=== PATIENT | male | born 1990 | race Caucasian/White ===

== ENCOUNTER 2017-10-24 20:28 | Emergency (ER) | payer OTHER ==
[2017-10-24 20:39] VITALS: BP 125/85
--- NOTE | 2017-10-24 21:51 | RAD ---
Indication: Left foot pain. 3 views of left foot demonstrates no fracture. No other bone or joint abnormality is identified. IMPRESSION: No fracture of the left foot.
--- NOTE | 2017-10-24 21:51 | RAD ---
Indication: Left ankle injury. 3 views of left ankle demonstrates no fracture. Ankle mortise is intact. No other bone or joint abnormalities identified. IMPRESSION: Unremarkable left ankle.
--- NOTE | 2017-10-24 21:53 | UC ---
Lower Extremity/Ankle HPI - HPI Summary HPI Summary: WORSENING LEFT FOOT PAIN FOR ONE WEEK. ( HAD LEFT ANKLE SPRAIN 3 WEEKS AGO.) PAIN WITH WEIGHT BEARING. WEARS STEEL TOED SHOES. NO KNOWN TRAUMA. - History of Current Complaint Hx Obtained From: Patient Onset/Duration: Gradual Onset, Lasting Weeks Severity Initially: Mild Severity Currently: Severe Aggravating Factor(s): Standing, Ambulation Alleviating Factor(s): Rest, Elevation Able to Bear Weight: Yes - WITH PAIN - Risk Factors Gout Risk Factors: Negative DVT Risk Factors: Negative Septic Arthritis Risk Factor: Negative <Federico Arnold - Last Filed: 10/24/17 21:48> <Belinda Egan - Last Filed: 10/24/17 21:58> - History of Current Complaint Chief Complaint: UCLowerExtremity Stated Complaint: FOOT PAIN Time Seen by Provider: 10/24/17 20:39 - Allergies/Home Medications Allergies/Adverse Reactions: Allergies Allergy/AdvReac Type Severity Reaction Status Date / Time No Known Allergies Allergy Verified 10/24/17 20:31 Home Medications: Home Medications Cyclobenzaprine TAB* [Flexeril 10 MG TAB*] 10 mg PO DAILY PRN 10/24/17 [History Confirmed 10/24/17] Hydroxyzine HCl 10 mg PO TID PRN 10/24/17 [History Confirmed 10/24/17] Omeprazole CAP* [Prilosec CAP* 20 MG] 20 mg PO DAILY 10/24/17 [History Confirmed 10/24/17] PMH/Surg Hx/FS Hx/Imm Hx Previously Healthy: Yes - Surgical History Surgical History: None - Family History Known Family History: Negative: Other - NO JOINT LAXITY - Social History Occupation: Employed Full-time Lives: With Family Alcohol Use: Rare Substance Use Type: None, Marijuana Smoking Status (MU): Smoker, Current Status Unknown Type: Smokeless Tobacco Household Exposure Type: Cigarettes <Federico Arnold - Last Filed: 10/24/17 21:48> Review of Systems Constitutional: Negative Skin: Negative Eyes: Negative ENT: Negative Respiratory: Negative Cardiovascular: Negative Gastrointestinal: Negative Genitourinary: Negative Motor: Negative Neurovascular: Negative Musculoskeletal: Arthralgia - LEFT FOOT, Myalgia - LEFT FOOT Neurological: Negative Psychological: Negative Is Patient Immunocompromised?: No All Other Systems Reviewed And Are Negative: Yes <Federico Arnold - Last Filed: 10/24/17 21:48> Physical Exam Triage Information Reviewed: Yes Appearance: Well-Appearing, No Pain Distress, Well-Nourished Vital Signs: Initial Vital Signs Temp 99.2 F 10/24/17 20:31 Pulse 85 10/24/17 20:31 Resp 18 10/24/17 20:31 BP 125/85 10/24/17 20:31 Pulse Ox 100 10/24/17 20:31 Vital Signs Reviewed: Yes Eye Exam: Normal ENT Exam: Normal ENT: Positive: Normal ENT inspection Dental Exam: Normal Neck exam: Normal Neck: Positive: Supple, Nontender, No Lymphadenopathy Respiratory Exam: Normal Respiratory: Positive: Chest non-tender, Lungs clear, Normal breath sounds, No respiratory distress, No accessory muscle use Cardiovascular Exam: Normal Cardiovascular: Positive: RRR, No Murmur, Pulses Normal Abdominal Exam: Normal Abdomen Description: Positive: Nontender, No Organomegaly Musculoskeletal: Positive: Strength Intact, ROM Intact, Other: - TENDERNESS TO DORSAL LATERAL FOOT WITH PALPATION Neurological Exam: Normal Psychological Exam: Normal Skin Exam: Normal <Federico Arnold - Last Filed: 10/24/17 21:48> Vital Signs: Initial Vital Signs Temp 99.2 F 10/24/17 20:31 Pulse 85 10/24/17 20:31 Resp 18 10/24/17 20:31 BP 125/85 10/24/17 20:31 Pulse Ox 100 10/24/17 20:31 <Belinda Egan - Last Filed: 10/24/17 21:58> Diagnostics - Radiology No standard instances Xray Interpretation: Positive (See Comments) - Interpreted by radiologist, reviewed by PARVEZ. Interpretation : NO IMPRESSION OF FRACTURE OR DISLOCATION Radiology Interpretation Completed By: ED Physician <Federico Arnold - Last Filed: 10/24/17 21:48> Lower Extremity Course/Dx - Course Course Of Treatment: CAM BOOT AND CRUTCHES, HAVE PATIENT FOLLOW UP WITH ORTHOPEDICS. - Differential Dx/Diagnosis Differential Diagnosis/HQI/PQRI: Fracture (Closed), Sprain, Strain, Other - EXTENSOR TENDONITIS OF THE FOOT Provider Diagnoses: LEFT FOOT SPRAIN - Physician Notifications Instructed by Provider To: Have Pt Call For Appt. <Federico Arnold - Last Filed: 10/24/17 21:48> Discharge <Federico Arnold - Last Filed: 10/24/17 21:48> <Belinda Egan - Last Filed: 10/24/17 21:58> - Discharge Plan Condition: Stable Disposition: HOME Patient Education Materials: Foot Sprain (ED), Tendinitis (ED) Forms: *Work Release Referrals: Jean Malone MD [Medical Doctor] - Luci Hernandez NP [Primary Care Provider] - Images Feet (Multiple View): 1 - PAIN HERE <Federico Arnold - Last Filed: 10/24/17 21:48> Attestation Statement User Type: Provider - I was available for consult. This patient was seen by the GHISLAINE. The patient was not presented to, seen by, or examined by me. -Gissell <Belinda Egan - Last Filed: 10/24/17 21:58>
== END 2017-10-24 21:51 | disposition home or self-care (01) ==
LOC: UCEAST 20:28
DX: S93.602A Unspecified sprain of left foot, initial encounter (principal); X58.XXXA Exposure to other specified factors, initial encounter; Y93.9 Activity, unspecified; Y92.9 Unspecified place or not applicable; F12.90 Cannabis use, unspecified, uncomplicated; Z72.0 Tobacco use
CPT/HCPCS: 99212; G0463

== ENCOUNTER 2018-11-24 09:35 | Emergency (ER) | payer OTHER ==
--- OUTSIDE RECORDS SUMMARY | 2018-11-24 10:11 | XMS REPORT | Continuity of Care Document ---
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 [address] PayID: [id number] [id number] Effective: 2012 Policy Number: Lifetime Benefit Paul Roy [id number] Solution Expires: 2013 Group Number: [id number] [address] [address] PayID: [id number] Ivory [id number] Effective: 2013 Policy Number: [place] Roy [id number] Medicaid PayID: [id number] [address] [place] [address] Advance Directives Description No Information Available Problems Description No Active Problems Family History Description No Information Available Social History Type Date Description Comments Sex Unknown Lives With The child lives with the father And His Fiance. Allergies, Adverse Reactions, Alerts Description No Known Drug Allergies Medications Medication Date Status Form Strength Qnty SIG Indications Ordering Provider Sildenafil 11/01 Active Tablets 100mg 10tab 1 by mouth N52.8 Shawnti Citrate s prior to Nory Cardona, intercourse ENTERTAINMENT PRODUCTION PROFESSIONAL-C if needed Ibuprofen 09/04 Active Tablets 600mg 60tab take one Shawnti /2016 s tablet by Nory Cardona, mouth 3 times ENTERTAINMENT PRODUCTION PROFESSIONAL-C daily with food as needed for pain Famotidine 06/21 Active Tablets 20mg 30tab 1 by mouth Luci s every day ABDELRAHMAN HernandezP-C Cyclobenzaprine 06/02 Active Tablets 5mg 60tab 1-2 by mouth Luci s three times a Mary, day for ENTERTAINMENT PRODUCTION PROFESSIONAL-C muscle spasm, may cause drowsiness Hydroxyzine HCL 06/02 Active Tablets 10mg 45tab 1 -3 tablet Luci s by mouth 4 Mary, times a day ENTERTAINMENT PRODUCTION PROFESSIONAL-C as needed for anxiety Tessalon Perles 07/26 Hx Capsules 100mg 30cap 1 to 2 J06.9 Marga s capsules up Shortle, - to 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 day as needed for cough Amoxicillin/Clav 04/20 Hx Tablets 875-125mg 20tab 1 tab by J01.90 Mark ulanat s mouth twice a [place] Potassium - MD sung 05/20 Azithromycin 12/05 Hx Tablets 250mg 6tabs take 2 J02.0 tablets today Mary, - then 1 tablet ENTERTAINMENT PRODUCTION PROFESSIONAL-C 04/20 daily for the next 4 days Clarithromycin 08/31 Hx Tablets 250mg 20tab 1 tablet po 462 s bid x 10 days Mary, - ENTERTAINMENT PRODUCTION PROFESSIONAL-C 04/20 Minocycline HCL 05/17 Hx Capsules 50mg 60cap 1 po bid for s one month Nory Cardona, - then 1 po ENTERTAINMENT PRODUCTION PROFESSIONAL-C 04/20 daily for acne To Whom It May 02/23 Hx Paul Cabalelro cleared to Michael, - 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 Benzonatate 09/07 Hx Capsules 100mg 30cap 1 or 2 tabs 465.9 s po tid prn Mary, - coughing ENTERTAINMENT PRODUCTION PROFESSIONAL-C 02/22 Wrist Splint 04/19 Hx Misc Cock Up 1spli wear on right 842.19 Right nt wrist full RStephanie Cardona, - time for 1-2 ENTERTAINMENT PRODUCTION PROFESSIONAL-C 02/22 weeks then needed Ibuprofen 04/19 Hx Tablets 600mg 60tab 1 tid prn 842.19 s pain, take Michael, - with food M.DStephanie 04/20 Guaifenesin ac 02/22 Hx Syrup 100-10mg/ 150ml 1 tsp po q4hr 842.19 5ML prn cough Nory Cardona, - ENTERTAINMENT PRODUCTION PROFESSIONAL-C 02/22 Doxycycline 12/06 Hx Capsules 100mg 14cap 1 tab po bid V69.2 Olivia Hyclate s for 7 days Miguel, - 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 10/02 Strattera 05/12 Hx Capsules 40mg 30cap Sirena Alatorre M.D. 10/02 Concerta 02/16 Hx Tablets 36mg 30tab 1 po qd Sirena Alatorre M.D. 05/12 Benzamycin 10/03 Hx Gel 46gm apply bid Sirena Rodriguez M.D. 01/21 Benzaclin Gel 10/01 Hx 50Gra use bid Sirena Lowry M.D. 10/03 Eryderm 04/28 Hx 30gm use qd Luci SobSirena gallegos.DStephanie 10/01 Concerta 08/12 Hx Tablets 18mg 53tab one q am for s 1 week then K.W. - two po q am Keyur, 02/16 M.DStephanie /2003 Loprox 1% Cream 08/07 Hx Cream 1% 30gm apply bid for 4 weeks for P. - athletes foot Blegen, 10/01 M.DStephanie /2002 Differin 08/07 Hx Gel 0.1% 45gm apply qhs P. - Blegen, 10/01 MStephanieDStephanie /2002 Concerta 05/02 Hx 36mg 30uni one po qd donte Pack M.D. 10/01 Omeprazole Hx Capsules 20mg 1 by mouth Unknown /0000 DR every day - 06/21 Medications Administered in Office Medication Date Status Form Strength Qnty SIG Indications Ordering Provider TB,Intradermal Administered Injection Lab and (PPD, [place]) 013 Office Services TB,Intradermal Administered Injection Federico Rodriguez, (PPD, [place]) 991 M.D. Immunizations CPT Code Status Date Vaccine Lot # [id number] Given 09/17/2016 Influenza Virus Vaccine, Quadrivalent, 3 Yr > Quad, Preserv Free 20191 Given 07/04/1995 Opv (Poliovirus,Oral) 21864 Given 07/04/1995 MMR (Measles,Mumps,Rubella) 38152 Given 07/04/1995 DTaP (Daptacel) 67675 Given 07/08/1994 Hep B Vaccine, Ped/Adol Dose 3 Dose (Engerix or Recombivax) 52453 Given 07/08/1993 Hep B Vaccine, Ped/Adol Dose 3 Dose (Engerix or Recombivax) 23136 Given 06/03/1993 Hep B Vaccine, Ped/Adol Dose 3 Dose (Engerix or Recombivax) 22982 Given 01/27/1992 DPT 85253 Given 01/27/1992 Opv (Poliovirus,Oral) 35956 Given 04/16/1991 MMR (Measles,Mumps,Rubella) 95590 Given 04/16/1991 Hib (Hemophilus Influenza B) (Acthib) 61210 Given 01/04/1991 Hib (Hemophilus Influenza B) (Acthib) 05712 Given 06/19/1990 DPT 43940 Given 04/04/1990 Opv (Poliovirus,Oral) 54581 Given 04/04/1990 DPT 27161 Given 01/29/1990 Opv (Poliovirus,Oral) 26193 Given 01/29/1990 DPT Vital Signs Date Vital Result Comment 11/01/2018 4:18pm Weight 141.00 lb w/ maguire toe boots Weight 63.958 kg BP Systolic 110 mmHg BP Diastolic 74 mmHg Heart Rate 88 /min Body Temperature 98.5 F Respiratory Rate 16 /min 07/26/2018 3:24pm Weight 136.00 lb Weight 61.690 kg BP Systolic 108 mmHg BP Diastolic 70 mmHg Heart Rate 74 /min Body Temperature 99.2 F Respiratory Rate 16 /min 06/21/2017 10:28am Weight 155.00 lb Weight 70.308 kg BP Systolic 110 mmHg BP Diastolic 78 mmHg Heart Rate 72 /min Body Temperature 98.7 F Respiratory Rate 14 /min 06/02/2017 9:17am Weight 150.00 lb Weight 68.040 kg BP Systolic 110 mmHg BP Diastolic 80 mmHg Heart Rate 72 /min Body Temperature 98.6 F Respiratory Rate 16 /min 04/20/2017 8:43am Weight 147.00 lb Weight 66.679 kg BP Systolic 100 mmHg BP Diastolic 70 mmHg Heart Rate 74 /min Body Temperature 97.7 F Respiratory Rate 14 /min O2 % BldC Oximetry 98 % 12/05/2016 10:07am Weight 140.00 lb Weight 63.504 kg BP Systolic 110 mmHg BP Diastolic 66 mmHg Heart Rate 99 /min Body Temperature 99.6 F Respiratory Rate 18 /min Height 63.5 inches 5'3.50" BMI (Body Mass Index) 24.4 kg/m2 O2 % BldC Oximetry 99 % 08/31/2012 10:55am Weight 111.00 lb Weight 50.350 kg BP Systolic 124 mmHg BP Diastolic 64 mmHg Heart Rate 110 /min Body Temperature 101.4 F Height 63.5 inches 5'3.50" BMI (Body Mass Index) 19.4 kg/m2 O2 % BldC Oximetry 98 % 05/21/2012 4:23pm Weight 122.00 lb Weight 55.339 kg BP Systolic 124 mmHg BP Diastolic 90 mmHg Heart Rate 68 /min 05/19/2012 10:06am Weight 119.00 lb Weight 53.978 kg BP Systolic 112 mmHg BP Diastolic 56 mmHg Body Temperature 97.3 F 05/17/2012 4:25pm Weight 126.00 lb Weight 57.154 kg BP Systolic 100 mmHg BP Diastolic 68 mmHg Heart Rate 76 /min Body Temperature 99.1 F 02/28/2012 10:56am Weight 116.00 lb Weight 52.618 kg BP Systolic 94 mmHg BP Diastolic 62 mmHg Heart Rate 88 /min Body Temperature 97.8 F 02/24/2012 11:23am Weight 123.00 lb with boots on Weight 55.793 kg BP Systolic 100 mmHg BP Diastolic 54 mmHg Heart Rate 72 /min 09/07/2011 3:06pm Weight 107.00 lb Weight 48.535 kg BP Systolic 100 mmHg BP Diastolic 68 mmHg Heart Rate 90 /min Body Temperature 99.4 F O2 % BldC Oximetry 97 % 04/19/2011 11:46am Weight 116.00 lb Weight 52.618 kg BP Systolic 102 mmHg BP Diastolic 68 mmHg Heart Rate 76 /min Height 64 inches 5'4" BMI (Body Mass Index) 19.9 kg/m2 02/22/2011 3:15pm Weight 116.50 lb Weight 52.844 kg BP Systolic 128 mmHg BP Diastolic 76 mmHg Body Temperature 99.1 F 12/06/2010 9:19am Weight 118.00 lb Weight 53.525 kg BP Systolic 112 mmHg BP Diastolic 72 mmHg Heart Rate 76 /min 09/11/2008 2:52pm Weight 118.00 lb Weight 53.525 kg BP Systolic 130 mmHg BP Diastolic 70 mmHg Heart Rate 83 /min Body Temperature 97.0 F oral Weight Percentile 6th O2 % BldC Oximetry 98 % room air 10/08/2007 9:40am Weight 119.00 lb Weight 53.978 kg BP Systolic 110 mmHg BP Diastolic 62 mmHg Heart Rate 67 /min Body Temperature 97.1 F Weight Percentile 9th 10/18/2005 2:52pm Weight 118.00 lb Weight 53.525 kg BP Systolic 110 mmHg BP Diastolic 68 mmHg Heart Rate 62 /min Weight Percentile 24th 03/15/2005 4:13pm Weight 123.00 lb Weight 55.793 kg Weight Percentile 43rd 09/30/2004 4:43pm Weight 122.00 lb Weight 55.339 kg BP Systolic 106 mmHg BP Diastolic 65 mmHg Heart Rate 76 /min Weight Percentile 50th 05/12/2004 3:57pm Weight 115.00 lb Weight 52.164 kg BP Systolic 116 mmHg BP Diastolic 73 mmHg Heart Rate 76 /min Weight Percentile 45th 02/17/2004 12:30pm Weight 117.00 lb Weight 53.071 kg BP Systolic 130 mmHg BP Diastolic 60 mmHg Heart Rate 72 /min Height 61 inches Height Percentile 10 % Weight Percentile 54th BMI (Body Mass Index) 22.1 kg/m2 01/14/2004 5:04pm Weight 117.00 lb Weight 53.071 kg Body Temperature 99.9 F Weight Percentile 56th 12/22/2003 5:05pm Weight 113.00 lb Weight 51.257 kg Body Temperature 100.8 F Weight Percentile 50th 04/28/2003 11:17am Weight 107.00 lb Weight 48.535 kg Body Temperature 99.3 F Weight Percentile 53rd 12/03/2002 2:16pm Weight 102.00 lb Weight 46.300 kg BP Systolic 100 mmHg BP Diastolic 60 mmHg Heart Rate 60 /min Weight Percentile 53rd 08/07/2002 6:04pm Weight 101.00 lb Weight 45.800 kg BP Systolic 90 mmHg BP Diastolic 60 mmHg Height 58.5 inches Height Percentile 26 % Weight Percentile 58th BMI (Body Mass Index) 20.7 kg/m2 08/07/2002 5:59pm Weight 101.00 lb Weight 45.800 kg Height 148 inches Height Percentile 95 % Weight Percentile 58th BMI (Body Mass Index) 3.2 kg/m2 03/20/2002 4:15pm Weight 95.00 lb Body Temperature 98.6 F Weight Percentile 61st Results Test Date Facility Test Result H/L Range Note Laboratory test 12/05/2016 In House Lab Strep Screen POS Neg finding (607)- - Flu Test A, B, Or A 12/05/2016 In House Lab Influenza A Antigen NEG & B,Binaxn (607)- - Influenza B Antigen NEG Urine Drug 01/20/2013 [facility] Amphetamine Ur None Detected None Detect SCR ED & [phone] Screen Pain Clinic Barbiturates Urine Screen None Detected None Detect Benzodiazepine Urine Screen None Detected None Detect Urine Cannabinoids Screen None Detected None Detect Urine Cocaine Screen None Detected None Detect Urine Opiates Screen None Detected None Detect Urine Phencyclidine Screen None Detected None Detect 1 CBC Auto Diff 01/20/2013 [facility] White Blood 5.8 10^3/uL 4.8-10.8 [phone] Count Red Blood Count 5.16 10^6/uL 4.0-5.4 Hemoglobin 15.6 g/dL 14.0-18.0 Hematocrit 45 % 42-52 Mean Corpuscular Volume 87 fL 80-94 Mean Corpuscular Hemoglobin 30 pg 27-31 Mean Corpuscular HGB Conc 35 g/dL 31-36 Red Cell Distribution Width 13 % 10.5-15 Platelet Count 208 10^3/uL 150-450 Mean Platelet Volume 8 um3 7.4-10.4 Abs Neutrophils 3.4 10^3/uL 1.5-7.7 Abs Lymphocytes 1.6 10^3/uL 1.0-4.8 Abs Monocytes 0.6 10^3/uL 0-0.8 Abs Eosinophils 0.1 10^3/uL 0-0.6 Abs Basophils 0.1 10^3/uL 0-0.2 Abs Nucleated RBC 0 10^3/uL Granulocyte % 59.2 % 38-83 Lymphocyte % 28.2 % 25-47 Monocyte % 10.4 % High 1-9 Eosinophil % 1.3 % 0-6 Basophil % 0.9 % 0-2 Nucleated Red Blood Cells % 0 Comp Metabolic Panel 01/20/2013 [facility] Sodium 139 mmol/L 133-145 [phone] Potassium 4.1 mmol/L 3.5-5.0 Chloride 105 mmol/L 101-111 Co2 Carbon Dioxide 26.0 mmol/L 22-32 Anion Gap 8.0 mmol/L 2-11 Glucose 89 mg/dL 70-100 Blood Urea Nitrogen 9 mg/dL 6-24 Creatinine 0.80 mg/dL 0.50-1.40 BUN/Creatinine Ratio 11.3 8-20 Calcium 9.2 mg/dL 8.1-9.9 Total Protein 7.8 g/dL 6.2-8.1 Albumin 4.4 g/dL 3.6-5.4 Globulin 3.4 g/dL 2-4 Albumin/Globulin Ratio 1.3 1-3 Total Bilirubin 1.1 mg/dL 0.4-1.5 Alkaline Phosphatase 73 U/L 30-110 Alt 30 U/L 14-54 Ast 16 U/L 12-42 Egfr Non- 119.8 >60 Egfr 154.1 >60 2 Laboratory test 01/20/2013 [facility] Acetaminophen < 10 g/mL Low 10-30 3 finding [phone] Alcohol < 10 mg/dL Less Than 10 4 Salicylate < 4.0 mg/L Less Than 30 5 TSH (Thyroid Stimulating Horm) 1.13 miu/mL 0.34-5.60 Urinalysis 01/20/2013 [facility] Urine Color Yellow [phone] Urine Appearance Clear Urine Specific Ewing 1.015 1.010-1.030 Urine Esterase Negative Negative Urine Nitrate Negative Negative Urine Urobilinogen Negative E.U./dL Negative Urine Protein Negative mg/dL Negative Urine pH 7.0 5-9 Urine Blood Negative Negative Urine Ketones Negative mg/dL Negative Urine Bilirubin Negative Negative Urine Glucose Negative mg/dL Negative Laboratory test 08/31/2012 In House Lab Strep Screen NEG Neg finding (607)- - CBC Auto Diff 06/18/2012 [facility] White Blood 13.9 CUMM High 4.8-10.8 [phone] Count Red Cell Count 5.54 CUMM 4.6-6.2 Hemoglobin 16.6 g/dL 14.0-18.0 Hematocrit 48 % 42-52 Mean Corpuscular Volume 86 um3 80-94 Mean Corpuscular Hemoglob 30 pg 27-31 Mean Corpuscular HGB Cone 35 g/dL 32-36 Redcell Distribution WDTH 13 % 10.5-15 Platelet Count 191 CUMM 150-450 Mean Platelet Volume 8.7 um3 7.4-10.4 Absolute Neutrophil Count 12.1 High 1.5-7.7 Manual 06/18/2012 [facility] Polysegmented 91 % High 38-83 Differential [phone] Neutrophil Band Neutrophil 1 % 0-8 Lymphocyte 5 % Low 25-47 Monocyte 3 % 0-13 RBC Morphology NORMAL Comp Metabolic Panel 06/18/2012 [facility] Sodium 138 mmol/L 135-145 [phone] Potassium 3.6 mmol/L 3.5-5.0 Chloride 107 mmol/L 101-111 Co2 (Carbon Dioxide) 23.0 mmol/L 22-32 Anion Gap 8.0 mmol/L 2-11 6 Glucose 107 mg/dL High 70-100 BUN 11 mg/dL 6-24 Creatinine 0.8 mg/dL 0.50-1.40 One Over Creatinine 1.25 BUN/Creatinine Ratio 13.8 8-20 Calcium 9.9 mg/dL 8.1-9.9 Total Protein 7.5 GM/DL 6.2-8.1 Albumin 4.6 GM/DL 3.6-5.4 Globulin 2.9 GM/DL 2-4 Albumin/Globulin Ratio 1.6 1-3 Bilirubin Total 1.0 mg/dL 0.4-1.5 7 Alkaline Phosphatase 67 U/L 39-117 Alt (SGPT) 22 U/L 17-63 Ast (Sgot) 13 U/L 12-42 eGFR Non- 120.9 > 60 eGFR 155.5 > 60 8 Laboratory test 06/18/2012 [facility] Lipase 26 U/L 22-51 finding [phone] Wound Culture 05/17/2012 [facility] Wound Culture Mixed skin 9 [phone] jayashree <SEE NOTE> .Gram Stain Additional NO EPI, FEW WBC, <SEE NOTE> 10 Laboratory test 12/06/2010 [facility] GC (N. Gonorrhoeae) N 11 finding [phone] Rna GC/Chlamydia 12/06/2010 [facility] Chlamydia N 12 Aptima [phone] Trachomatis Rna Laboratory test 04/28/2003 In House Lab Strep Screen NEG Neg finding (607)- - Urine DIP 09/25/2002 In House Lab Leukocytes NEG Neg (607)- - Urine Nitrites NEG Neg Urine pH 5 5-6 Total Protein, Urine NEG Neg Urine Glucose NL Norm Urine Ketones NL Neg Urobolinogen NL Norm Urine Bilirubin NL Neg Urine Blood NL Neg Specific Ewing N/A Low 1.01-1.02 Urine DIP 09/11/2002 In House Lab Leukocytes NEG Neg (607)- - Urine Nitrites NEG Neg Urine pH 5-6 5-6 Total Protein, Urine TRACE NRG Urine Glucose NEG Norm Urine Ketones NEG Neg Urobolinogen NORM Norm Urine Bilirubin NEG Neg Urine Blood NEG Neg Urine DIP 08/14/2002 In House Lab Leukocytes NEG Neg (607)- - Urine Nitrites NEG Neg Urine pH 5 5-6 Total Protein, Urine NL Neg Urine Glucose NL Norm Urine Ketones NL Neg Urobolinogen NL Norm Urine Bilirubin NL Neg Urine Blood NL Neg Specific Ewing N/A Low 1.01-1.02 1 The urine specimen was tested at the listed cutoffs: Drug class test level (ng/ml) Amphetamines 300 Barbituates 200 Benzodiazepine metabolites 200 Cocaine metabolites 300 Cannabinoids 25 Opiates 200 Pcp 25 This is a screening procedure. Positive results are not confirmed. Specimen was received without chain of custody. Results should be used for medical purposes only. 2 Because ethnic data is not always readily available, this report includes an eGFR for both -Americans and non- Americans. The National Kidney Disease Education Program (NKDEP) does not endorse the use of the MDRD equation for patients that are not between the ages of 18 and 70, are , have extremes of body size, muscle mass, or nutritional status, or are non- or non-. According to the National Kidney Foundation, irrespective of diagnosis, the stage of the disease is based on the level of kidney function: Stage Description GFR(mL/min/1.73 m(2)) 1 Kidney damage with normal or decreased GFR 90 2 Kidney damage with mild decrease in GFR 60-89 3 Moderate decrease in GFR 30-59 4 Severe decrease in GFR 15-29 5 Kidney failure <15 (or dialysis) 3 Toxic levels: greater than 150 mcg/ml @ 4hr post ingest Greater than 50 mcg/ml @ 12hr post ingest The detection limit for acetaminophen is 10.0 mcg/ml . Values less than 10.0 mcg/ml cannot be accurately measured. 4 The detection limit for ETHANOL is 10.0 mg/dl . Values less than 10.0 mg/dl cannot be accurately measured. 5 The detection limit for SALICYLATE is 4.0 mg/dl. Values less than 4.0 mg/dl cannot be accurately measured. 6 Anion gap measurement may be of limited value in the presence of any alkalosis, especially in a combined acid base disorder. . 7 A metabolite of Naproxen, O-desmethylnaproxen, has been shown to interfere with the Jendrassik-Benji method for measuring total bilirubin. Samples from patients who have taken Naproxen have shown spurious elevation in total bilirubin levels. 8 Because ethnic data is not always readily available, this report includes an eGFR for both -Americans and non- Americans. The National Kidney Disease Education Program (NKDEP) does not endorse the use of the MDRD equation for patients that are not between the ages of 18 and 70, are , have extremes of body size, muscle mass, or nutritional status, or are non- or non-. According to the National Kidney Foundation, irrespective of diagnosis, the stage of the disease is based on the level of kidney function: Stage Description GFR(mL/min/1.73 m(2)) 1 Kidney damage with normal or decreased GFR 90 2 Kidney damage with mild decrease in GFR 60-89 3 Moderate decrease in GFR 30-59 4 Severe decrease in GFR 15-29 5 Kidney failure <15 (or dialysis) 9 Mixed skin jayashree. 10 NO EPI, FEW WBC, NO ORGANISMS SEEN 11 NEGATIVE FOR NEISSERIA GONORRHOEAE rRNA A negative result does not preclude the presence of a C.trachomatis or N.gonorrhoeae infection because results are dependent on adequate specimen collection, absence of inhibitors, and sufficient rRNA to be detected. Test results may be affected by improper specimen collection, improper specimen storage, technical error, or specimen mixup. 12 NEGATIVE FOR CHLAMYDIA TRACHOMATIS rRNA A negative result does not preclude the presence of a C.trachomatis or N.gonorrhoeae infection because results are dependent on adequate specimen collection, absence of inhibitors, and sufficient rRNA to be detected. Test results may be affected by improper specimen collection, improper specimen storage, technical error, or specimen mixup. 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, unspecified Office Visit 06/21/2017 Main Office Luci Hernandez, F41.9 Anxiety disorder , 10:30a ENTERTAINMENT PRODUCTION PROFESSIONAL-C unspecified J06.9 Acute upper respiratory infection, unspecified Office Visit 06/02/2017 9:30a Main Office Luci Hernandez F41.9 Anxiety disorder, ENTERTAINMENT PRODUCTION PROFESSIONAL-C unspecified Office Visit 04/20/2017 8:45a Main Office Mark J01.90 Acute sinusitis, MD Jose Armando unspecified Office Visit 12/05/2016 9:45a Main Office Luci Hernandez, J02.0 Streptococcal ENTERTAINMENT PRODUCTION PROFESSIONAL-C pharyngitis Office Visit 08/31/2012 10:45a Main Office Luci Hernandez, 462 Pharyngitis Acute ENTERTAINMENT PRODUCTION PROFESSIONAL-C Office Visit 02/28/2012 10:45a Main Office Federico Rodriguez M.D. 891.2 Open Wound Knee Leg (Except Thigh) & Ankle W/ Tendon Invlv Office Visit 02/24/2012 11:00a Main Office Federico Rodriguez M.D. 891.2 Open Wound Knee Leg (Except Thigh) & Ankle W/ Tendon Invlv 787.1 Heartburn Office Visit 09/07/2011 3:15p Main Office Luci Hernandez, 465.9 URI Upper ENTERTAINMENT PRODUCTION PROFESSIONAL-C Respiratory Infections Acute Unspec Sites Office Visit 04/19/2011 11:45a Main Office Russ Cardona, 842.19 Sprains & Strains ENTERTAINMENT PRODUCTION PROFESSIONAL-C Hand Other Office Visit 02/22/2011 3:15p Main Office Russ Cardona, 465.9 URI Upper ENTERTAINMENT PRODUCTION PROFESSIONAL-C Respiratory Infections Acute Unspec Sites Office Visit 12/06/2010 9:45a Main Office Olivia Rivera, V69.2 Sexual Behavior PRINTING EQUIPMENT MECHANIC APPRENTICE High Risk Office Visit 09/11/2008 2:45p Main Office Russ Cardona, 465.9 URI Upper ENTERTAINMENT PRODUCTION PROFESSIONAL-C Respiratory Infections Acute Unspec Sites 530.81 Esophageal Reflux Office Visit 10/08/2007 9:45a Main Office Russ Trujillo Pneumonia Organism Storm, ENTERTAINMENT PRODUCTION PROFESSIONAL-C Unspec Office Visit 10/02/2006 4:45p Main Office Galen Vidal, 461.9 Sinusitis Acute M.D. Unspec Office Visit 10/18/2005 2:30p Main Office Federico Rodriguez 314.01 Attention Deficit M.D. Disorder W/ Hyperactivity 309.89 Adjustment Reaction Other Spec Office Visit 03/15/2005 3:30p Main Office Federico Rodriguez 706.1 Acne Other M.D. Office Visit 09/30/2004 4:00p Main Office Federico Rodriguez 314.01 Attention Deficit M.D. Disorder W/ Hyperactivity 724.2 Lumbago Office Visit 05/12/2004 4:00p Main Office Federico Rodriguez 314.01 Attention Deficit M.D. Disorder W/ Hyperactivity 787.1 Heartburn Office Visit 02/17/2004 11:45a Main Office Federico Rodriguez M.D. 706.1 Acne Other 314.01 Attention Deficit Disorder W/ Hyperactivity Office Visit 01/14/2004 4:30p Main Office Federico Rodriguez M.D. 923.3 Contusion Finger 309.89 Adjustment Reaction Other Spec Office Visit 12/22/2003 4:15p Main Office Neelima Green9.99 Viral Infection Tk Esqueda Unspec Office Visit 10/01/2003 4:15p Main Office Federico Rodriguez M.D. V20.2 Routine Infant Or Child Health Check 706.1 Acne Other Office Visit 04/28/2003 11:00a Main Office Luci Lozada M.D. 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-CN52.8 Other male erectile dysfunctionNew Medication:Sildenafil Citrate 100 mg - 1 by mouth prior to intercourse if neededComments:discussed options, will refer to urology regarding pyrone's ... discussed viagra, may be painful with Pyrone's, does not currently have pain with erections however he has not been able to get a full erectionFollow up: refer to [facility] for pyrone'sM67.442 Ganglion, left handRecommendations: If this becomes painful I can refer you to orthopedics to having it removed
[2018-11-24] MEDS ORDERED: Tetan/Diph/Pertus SYR(Tdap)* 0.5 ML SYR(BOOSTRIX) use SYR IM ONE (10:57)
[2018-11-24] MEDS ORDERED: Ibuprofen TAB* 600 MG PO ONE (11:02)
[2018-11-24 11:31] VITALS: BP 123/87
--- NOTE | 2018-11-24 12:07 | ED ---
Laceration/Wound HPI - HPI Summary HPI Summary: Patient is an otherwise healthy 27-year-old male presenting to the ED with a 1.5 cm laceration just between the eyes. Laceration is very superficial. He endorses mild amount of bleeding, bleeding is well controlled on arrival. He endorses a headache. The laceration happened with a razor blade while at work. Denies any other symptoms at this time. - History of Current Complaint Stated Complaint: RIGHT EYE INJURY Time Seen by Provider: 11/24/18 10:05 Hx Obtained From: Patient Mechanism of Injury: Sharp/Blunt Trauma Onset/Duration: Sudden Onset Aggravating: Movement Alleviating: Compression Timing: Constant Onset Severity: Mild Current Severity: None Pain Intensity: 0 Pain Scale Used: 0-10 Numeric Associated Signs & Symptoms: Negative - Allergy/Home Medications Allergies/Adverse Reactions: Allergies Allergy/AdvReac Type Severity Reaction Status Date / Time No Known Allergies Allergy Verified 11/24/18 09:50 PMH/Surg Hx/FS Hx/Imm Hx Previously Healthy: Yes Endocrine/Hematology History: Denies: Hx Diabetes Psychiatric History: Reports: Hx of Violent Episodes Against Others Denies: Hx Eating Disorder - Immunization History Hx Pertussis Vaccination: No Immunizations Up to Date: Yes Infectious Disease History: No Infectious Disease History: Denies: Traveled Outside the [place] in Last 30 Days - Family History Known Family History: Negative: Other - NO JOINT LAXITY - Social History Occupation: Employed Full-time Lives: With Family Alcohol Use: Rare Substance Use Type: Reports: None Smoking Status (MU): Smoker, Current Status Unknown Type: Smokeless Tobacco Review of Systems Negative: Fever, Chills, Fatigue, Skin Diaphoresis Negative: Dental Pain, Sore Throat Negative: Palpitations, Chest Pain Negative: Shortness Of Breath, Cough Genitourinary: Negative Positive: no symptoms reported, see HPI Negative: Arthralgia, Myalgia Positive: Other - 1.5cm superficial laceration Positive: Headache All Other Systems Reviewed And Are Negative: Yes Physical Exam Triage Information Reviewed: Yes Vital Signs On Initial Exam: Initial Vitals Temp Pulse Resp BP Pulse Ox 99.1 F 70 14 135/77 100 11/24/18 09:47 11/24/18 09:47 11/24/18 09:47 11/24/18 09:47 11/24/18 09:47 Vital Signs Reviewed: Yes Appearance: Positive: No Pain Distress, Well-Nourished Skin: Positive: Warm, Skin Color Reflects Adequate Perfusion, Other - 1.5cm superficial laceration Head/Face: Positive: Normal Head/Face Inspection Eyes: Positive: EOMI, ROCAEL, Conjunctiva Clear Neck: Positive: Supple, No Lymphadenopathy Respiratory/Lung Sounds: Positive: Clear to Auscultation, Breath Sounds Present Cardiovascular: Positive: RRR, Pulses are Symmetrical in both Upper and Lower Extremities Musculoskeletal: Positive: Normal, Strength/ROM Intact Neurological: Positive: Speech Normal Psychiatric: Positive: Normal, Affect/Mood Appropriate Diagnostics - Vital Signs Vital Signs Temp Pulse Resp BP Pulse Ox 11/24/18 11:30 98.3 F 65 16 123/87 98 11/24/18 09:47 99.1 F 70 14 135/77 100 - Laboratory Lab Statement: Any lab studies that have been ordered have been reviewed, and results considered in the medical decision making process. Laceration Repair Course/Dx - Course Course Of Treatment: Patient is evaluated for 1.5 cm superficial laceration between the eyes of the forehead. Denies any other symptoms. Adhesive applied. 2 Steri-Strips applied. Tetanus updated. Ibuprofen 600mg given for headache. He is okay for discharge home. Steri-Strips will be taken off in 3- 4 days. - Clinical Impression Provider Diagnoses: Laceration Discharge - Sign-Out/Discharge Documenting (check all that apply): Patient Departure - Discharge Plan Condition: Stable Disposition: HOME Patient Education Materials: Skin Adhesive Care (ED), Steristrips (ED) Referrals: Russ Cardona INSURANCE SALESMAN [Primary Care Provider] - Additional Instructions: Keep steri strips applied for at least 3-4 days Then you may gentle pull off or cut ends of the strips off - Billing Disposition and Condition Condition: STABLE Disposition: Home Images - Images Head: 1 - 1.5cm laceration
== END 2018-11-24 11:30 | disposition home or self-care (01) ==
LOC: ED 09:35
DX: S01.81XA Laceration without foreign body of other part of head, initial encounter (principal); W26.8XXA Contact with other sharp object(s), not elsewhere classified, initial encounter; Y92.9 Unspecified place or not applicable; Y99.0 Civilian activity done for income or pay; Z23 Encounter for immunization
CPT/HCPCS: 12011; 90471; 90715; 99281; A9270-GY

== ENCOUNTER 2019-12-25 08:28 | Emergency (ER) | payer OTHER ==
--- NOTE | 2019-12-25 08:42 | ED ---
Laceration/Wound HPI - HPI Summary HPI Summary: Pt. is a 38 y.o male who presents emergency department for laceration to his left hand that occurred just prior to arrival. 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 Unaware of last tetanus immunization. Symptoms are mild in severity. No current modifying factors. - History of Current Complaint Stated Complaint: LACERATION PER PT Time Seen by Provider: 12/25/19 08:33 Hx Obtained From: Patient Pain Intensity: 3 - Allergy/Home Medications Allergies/Adverse Reactions: Allergies Allergy/AdvReac Type Severity Reaction Status Date / Time No Known Allergies Allergy Verified 12/25/19 08:32 PMH/Surg Hx/FS Hx/Imm Hx Previously Healthy: Yes Endocrine/Hematology History: Denies: Hx Diabetes Psychiatric History: Reports: Hx of Violent Episodes Against Others Denies: Hx Eating Disorder Infectious Disease History: No Infectious Disease History: Denies: Traveled Outside the [place] in Last 30 Days - Family History Known Family History: Positive: Non-Contributory Negative: Other - NO JOINT LAXITY - Social History Occupation: Employed Part-time Lives: With Family Alcohol Use: Rare Substance Use Type: Reports: None Smoking Status (MU): Heavy Every Day Tobacco Smoker Type: Smokeless Tobacco Review of Systems Positive: Other - laceration to left hand Neurological: Negative Negative: Weakness, Paresthesia, Numbness All Other Systems Reviewed And Are Negative: Yes Physical Exam Triage Information Reviewed: Yes Vital Signs On Initial Exam: Initial Vitals Temp Pulse Resp BP Pulse Ox 98.1 F 76 19 153/99 100 12/25/19 08:28 12/25/19 08:28 12/25/19 08:28 12/25/19 08:28 12/25/19 08:28 Vital Signs Reviewed: Yes Appearance: Positive: Well-Appearing - Pt. sitting on bed in NAD. Skin: Positive: Warm, Dry Head/Face: Positive: Normal Head/Face Inspection Eyes: Positive: Normal, EOMI Neck: Positive: Supple Musculoskeletal: Positive: Other - 2 centimeter laceration noted to the palmar aspect of the left hand over thenar eminence. Full range of motion of the digits with flexion and extension. No bony tenderness. Minimal active bleeding. Neurological: Positive: Normal, CN Intact II-III Psychiatric: Positive: Normal Procedures - Sedation Patient Received Moderate/Deep Sedation with Procedure: No - Laceration/Wound Repair 1 Location: upper extremity Description: Linear Anesthesia: Local, 1.0%, Lido Length, Depth and Shape: 2cm Betadine Prep?: No - hibiclens Irrigated w/ Saline (ccs): 200 Laceration/Wound Explored: clean Closure: Single Layer Suture Type: Nylon Number of Sutures: 4 Layer Closure?: No Sterile Dressing Applied?: Yes Diagnostics - Vital Signs Vital Signs Temp Pulse Resp BP Pulse Ox 12/25/19 08:28 98.1 F 76 19 153/99 100 - Laboratory Lab Statement: Any lab studies that have been ordered have been reviewed, and results considered in the medical decision making process. Laceration Repair Course/Dx - Course Course Of Treatment: Pt. presenting for simple hand laceration that was repaired as noted above. Tetanus updated. Suture removal in 7-10 days. To keep wound clean and dry. Will return for redness, swellng, drainage from suture site. P.t understands and agrees with plan. - Differential Dx Differental Diagnoses: Foreign Body, Laceration, Tendon Laceration - Clinical Impression Provider Diagnoses: Laceration Discharge ED - Sign-Out/Discharge Documenting (check all that apply): Patient Departure - Discharge Plan Condition: Improved Disposition: HOME Patient Education Materials: Care For Your Stitches (ED) Referrals: Russ Cardona, J[employer]EE ANDROID DEVELOPER [Primary Care Provider] - Additional Instructions: Suture removal in 7-10 days Keep wound clean and dry Return to ER for redness, swelling, drainage from suture site - Billing Disposition and Condition Condition: IMPROVED Disposition: Home
[2019-12-25] MEDS: Tetan/Diph/Pertus SYR(Tdap)* 0.5 ML SYR(BOOSTRIX) use SYR contains LATEX IM ONE (09:10)
[2019-12-25 09:25] VITALS: BP 142/78
== END 2019-12-25 09:15 | disposition home or self-care (01) ==
LOC: ED 08:28
DX: S61.412A Laceration without foreign body of left hand, initial encounter (principal); Z23 Encounter for immunization; W45.8XXA Other foreign body or object entering through skin, initial encounter; Y92.89 Other specified places as the place of occurrence of the external cause; Y99.0 Civilian activity done for income or pay; F17.290 Nicotine dependence, other tobacco product, uncomplicated
CPT/HCPCS: 12001; 90471; 90715; 99282